=== PATIENT | male | born 1975 | race Caucasian/White ===

== ENCOUNTER 2017-06-09 18:11 | Emergency (ER) | payer MEDICAID ==
[~2017-06-09] VITALS: Ht 172.7 cm; Wt 90.7 kg
[2017-06-09 18:22] VITALS: BP_SYST 133
[2017-06-09] MEDS ORDERED: NACL 0.9% 1,000 ML IV ONE ×2 (18:45→20:00)
[2017-06-09] MEDS ORDERED: INSULIN REGULAR, HUMAN 10 UNITS/0.1 ML INJ IVP ONE (18:45)
[2017-06-09 19:22] LABS: BASOPHILS % (AUTO) 0.6 % (0.0-2.0); EOSINOPHILS # (AUTO) 0.1 K/uL (0.0-0.4); EOSINOPHILS % (AUTO) 1.4 % (0.0-4.0); HEMATOCRIT 50.4 % (36-54); HEMOGLOBIN 16.3 g/dL (14.0-18.0); LYMPHOCYTES # (AUTO) 1.3 K/uL (1.0-5.5); LYMPHOCYTES % (AUTO) 15.7 % (20.5-51.5); MEAN CORPUSCULAR HEMOGLOBIN 29 pg (27-31); MEAN CORPUSCULAR HGB CONC 32 % (32-36); MEAN CORPUSCULAR VOLUME 90 fL (79.0-98.0); MONOCYTES # (AUTO) 0.5 K/uL (0.0-1.0); MONOCYTES % (AUTO) 5.9 % (1.7-9.3); NEUTROPHILS # (AUTO) 6.2 K/uL (1.8-7.7); NEUTROPHILS % (AUTO) 76.4 % (40.0-70.0); PLATELET COUNT (AUTO) 248 K/uL (130-430); RED BLOOD CELL COUNT(AUTO) 5.62 MIL/uL (4.2-6.2); WHITE BLOOD COUNT (AUTO) 8.1 K/uL (4.8-10.8)
[2017-06-09 19:37] LABS: ANION GAP 8 (5-15); CHLORIDE 98 mmol/L (98-107); CREATININE 1.16 mg/dL (0.55-1.30); SODIUM SERUM 133 mmol/L (136-145); UREA NITROGEN, BLOOD 19 mg/dL (8-21)
[2017-06-09 19:38] LABS: ALANINE AMINOTRANSFERASE 25 U/L (12-78); ALBUMIN 3.5 g/dL (3.4-4.8); ASPARTATE AMINOTRANSFERASE 6 U/L (10-37); TOTAL BILIRUBIN 0.3 mg/dL (0.0-1.0)
[2017-06-09 19:41] LABS: GFR AFRICAN AMERICAN 90 mL/min (>90); GLUCOSE 751 mg/dL (70-99)
[2017-06-09 19:49] LABS: ACETONE, SERUM NEGATIVE (NEGATIVE)
[2017-06-09 20:18] LABS: BILIRUBIN,URINE NEGATIVE (NEGATIVE); BLOOD, URINE NEGATIVE (NEGATIVE); CLARITY/URINE CLEAR (CLEAR); COLOR,URINE YELLOW (YELLOW); GLUCOSE,URINE 3+ (NEGATIVE); KETONES,URINE NEGATIVE (NEGATIVE); LEUKOCYTE ESTERASE ,URINE NEGATIVE (NEGATIVE); NITRITE, URINE NEGATIVE (NEGATIVE); PROTEIN URINE NEGATIVE (NEGATIVE); UROBILINOGEN,URINE 0.2 (0.2-1.0)
[2017-06-09 21:02] VITALS: BP_SYST 131
[2017-06-09 21:03] LABS: BACTERIA,URINE FEW /HPF (None Seen); MUCUS,URINE None Seen /LPF (None Seen); RBC,URINE NONE SEEN /HPF (0-3); WBC,URINE 0-3 /HPF (0-3)
== END 2017-06-09 21:02 | disposition home or self-care (01) ==
LOC: SED 18:11
DX: E11.65 Type 2 diabetes mellitus with hyperglycemia (principal); I10 Essential (primary) hypertension
CPT/HCPCS: 36415; 80053; 81000; 82009; 82962; 85025; 96361; 96374; 99284; J1815; J7030

== ENCOUNTER 2017-06-15 14:23 | Emergency (ER) | payer MEDICAID ==
[~2017-06-15] VITALS: Ht 172.7 cm; Wt 90.7 kg
[2017-06-15 14:32] VITALS: BP_SYST 139
[2017-06-15] MEDS ORDERED: ONDANSETRON 4 MG ODT TAB PO ONE (14:45)
[2017-06-15] MEDS ORDERED: HYDROcodone/ACETAMIN 7.5-325 MG TAB PO ONE (14:45)
[2017-06-15 15:35] LABS: BASOPHILS % (AUTO) 0.2 % (0.0-2.0); EOSINOPHILS # (AUTO) 0.1 K/uL (0.0-0.4); EOSINOPHILS % (AUTO) 0.7 % (0.0-4.0); HEMATOCRIT 52.9 % (36-54); HEMOGLOBIN 17.5 g/dL (14.0-18.0); LYMPHOCYTES # (AUTO) 1.1 K/uL (1.0-5.5); LYMPHOCYTES % (AUTO) 13.6 % (20.5-51.5); MEAN CORPUSCULAR HEMOGLOBIN 30 pg (27-31); MEAN CORPUSCULAR HGB CONC 33 % (32-36); MEAN CORPUSCULAR VOLUME 89 fL (79.0-98.0); MONOCYTES # (AUTO) 0.7 K/uL (0.0-1.0); MONOCYTES % (AUTO) 7.8 % (1.7-9.3); NEUTROPHILS # (AUTO) 6.5 K/uL (1.8-7.7); NEUTROPHILS % (AUTO) 77.7 % (40.0-70.0); RED BLOOD CELL COUNT(AUTO) 5.94 MIL/uL (4.2-6.2); RED CELL DISTRIBUTION WIDTH 11.9 % (9.0-15.0); WHITE BLOOD COUNT (AUTO) 8.4 K/uL (4.8-10.8)
[2017-06-15] MEDS ORDERED: AMPICILLIN SODIUM/SULBACTAM NA 3 GM in NS 100 ML IV ONE (15:45)
[2017-06-15 15:55] LABS: CALCIUM 8.7 mg/dL (8.4-11.0); CREATININE 0.96 mg/dL (0.55-1.30); PLATELET COUNT (AUTO) 250 K/uL (130-430); POTASSIUM 4.4 mmol/L (3.5-5.1)
[2017-06-15] MEDS ORDERED: KETOROLAC TROMETHAMINE 15 MG VIAL IVP ONE (16:15)
[2017-06-15] MEDS ORDERED: NACL 0.9% 1,000 ML IV ONE ×2 (16:15)
[2017-06-15 16:16] LABS: ERYTHROCYTE SEDIMENTATION RATE 7 MM/HR (0-15)
[2017-06-15] MEDS ORDERED: AMPICILLIN SODIUM/SULBACTAM NA 3 GM VIAL ONE (16:22)
[2017-06-15] MEDS ORDERED: INSULIN REGULAR, HUMAN 10 UNITS/0.1 ML INJ IVP ONE (17:15)
[2017-06-15 18:10] VITALS: BP_SYST 129
== END 2017-06-15 18:10 | disposition home or self-care (01) ==
LOC: SED 14:23
DX: L03.126 Acute lymphangitis of left lower limb (principal); L03.116 Cellulitis of left lower limb; E11.65 Type 2 diabetes mellitus with hyperglycemia; I10 Essential (primary) hypertension
CPT/HCPCS: 36415; 73630; 80048; 82962; 85025; 85651; 87040; 96361; 96365; 96374; 96375; 99285; J0295; J1815; J1885; J7030; Q0162

== ENCOUNTER 2018-07-17 21:27 | Inpatient (IN) | payer MEDICAID ==
[~2018-07-17] VITALS: Ht 172.7 cm; Wt 81.4 kg
[~2018-07-17 21:27] MED LIST: BUPIVACAINE /PF 0.25% 30 ML VIAL INJ ONE; LR 1,000 ML IV.SOLN IV ONE; MIDAZOLAM HCL 5 MG/5 ML VIAL IVP ONE; ONDANSETRON HCL 4 MG/2 ML VIAL IVP ONE; PROPOFOL 200MG/ 20ML VIAL (DIPRIVAN) IV ONE; SEVOFLURANE 15 MIN GAS INH ONE; fentaNYL CITRATE/PF 100 MCG/2 ML AMP IVP ONE
[2018-07-17 21:41] VITALS: BP_SYST 169
[2018-07-17 22:26] LABS: BASOPHILS % (AUTO) 0.3 % (0.0-2.0); EOSINOPHILS # (AUTO) 0.2 K/uL (0.0-0.4); EOSINOPHILS % (AUTO) 1.2 % (0.0-4.0); HEMATOCRIT 46.4 % (36-54); HEMOGLOBIN 15.6 g/dL (14.0-18.0); LYMPHOCYTES # (AUTO) 1.6 K/uL (1.0-5.5); LYMPHOCYTES % (AUTO) 12.2 % (20.5-51.5); MEAN CORPUSCULAR HEMOGLOBIN 29 pg (27-31); MEAN CORPUSCULAR HGB CONC 34 % (32-36); MEAN CORPUSCULAR VOLUME 87 fL (79.0-98.0); MONOCYTES % (AUTO) 7.5 % (1.7-9.3); NEUTROPHILS % (AUTO) 78.8 % (40.0-70.0); PLATELET COUNT (AUTO) 245 K/uL (130-430); RED BLOOD CELL COUNT(AUTO) 5.35 MIL/uL (4.2-6.2); RED CELL DISTRIBUTION WIDTH 11.5 % (9.0-15.0); WHITE BLOOD COUNT (AUTO) 12.8 K/uL (4.8-10.8)
[2018-07-17 22:34] LABS: CALCIUM 9.3 mg/dL (8.4-11.0); CREATININE 0.95 mg/dL (0.55-1.30)
[2018-07-17] MEDS ORDERED: ACETAMINOPHEN 500 MG TABLET PO ONE (22:45)
[2018-07-17] MEDS ORDERED: cefTRIAXone 1 GM IVPB PREMIX 50 ML IV ONE (22:45)
[2018-07-17 22:49] LABS: ALBUMIN 3.3 g/dL (3.4-4.8); TOTAL BILIRUBIN 0.5 mg/dL (0.0-1.0)
[2018-07-17] MEDS ORDERED: GLUXR500 PO (23:37)
[2018-07-18] MEDS: CLINDAMYCIN 600 MG in D5W 50 ML IV SCH ×4 (00:15→17:20)
[2018-07-18] MEDS ORDERED: TEMAZEPAM 15 MG CAPSULE PO PRN (00:15)
[2018-07-18 00:22] VITALS: BP_SYST 145
[2018-07-18] MEDS ORDERED: cloNIDine HCL 0.1 MG TABLET PO PRN (00:30)
[2018-07-18] MEDS ORDERED: CLINDAMYCIN 600 mg/50mL D5W 100 ML IV ONE (00:43)
[2018-07-18] MEDS ORDERED: VANCOMYCIN HCL 1000 MG/VIAL IV ONE (00:43)
[2018-07-18] MEDS ORDERED: VANCOMYCIN HCL 1 GM/NS PREMIX 250 ML IV ONE (01:00)
[2018-07-18] MEDS: cloNIDine HCL 0.2 MG TABLET PO SCH ×3 (01:19→20:49)
[2018-07-18] MEDS: HYDROmorphone 2 MG/ML VIAL IVP PRN ×3 (01:30→17:21)
[2018-07-18] MEDS: VALSARTAN 160 MG TABLET (DIOVAN) PO SCH ×3 (02:00→20:48)
[2018-07-18] MEDS: INSULIN REGULAR, HUMAN 100 UNITS/ML, 10 ML VIAL (novoLIN R) SUBCUT PRN ×4 (06:21→20:55)
[2018-07-18 08:00] VITALS: BP_SYST 98
[2018-07-18] MEDS: ENOXAPARIN SODIUM 40 MG/0.4 ML SYRINGE SUBCUT SCH (09:30)
[2018-07-18 12:00] VITALS: BP_SYST 95
[2018-07-18] MEDS: VANCOMYCIN HCL 1,250 MG in NS 250 ML IV SCH (15:26)
[2018-07-18 16:00] VITALS: BP_SYST 124
[2018-07-18] MEDS: metFORMIN HCL 500 MG TABLET PO SCH (18:11)
[2018-07-18 19:10] VITALS: BP_SYST 117
[2018-07-18] MEDS: ACETAMINOPHEN 325 MG TABLET PO PRN (21:04)
[2018-07-19 00:36] VITALS: BP_SYST 117
[2018-07-19] MEDS: CLINDAMYCIN 600 MG in D5W 50 ML IV SCH ×5 (00:49→23:48)
[2018-07-19] MEDS: VANCOMYCIN HCL 1,250 MG in NS 250 ML IV SCH ×2 (02:37→13:54)
[2018-07-19] MEDS: INSULIN REGULAR, HUMAN 100 UNITS/ML, 10 ML VIAL (novoLIN R) SUBCUT PRN ×4 (06:15→20:44)
[2018-07-19 06:23] LABS: BASOPHILS # (AUTO) 0.1 K/uL (0.0-0.2); BASOPHILS % (AUTO) 1.3 % (0.0-2.0); EOSINOPHILS # (AUTO) 0.2 K/uL (0.0-0.4); EOSINOPHILS % (AUTO) 3.2 % (0.0-4.0); HEMATOCRIT 40.3 % (36-54); LYMPHOCYTES # (AUTO) 1.9 K/uL (1.0-5.5); MEAN CORPUSCULAR HEMOGLOBIN 29 pg (27-31); MEAN CORPUSCULAR HGB CONC 32 % (32-36); MONOCYTES # (AUTO) 0.6 K/uL (0.0-1.0); MONOCYTES % (AUTO) 8.2 % (1.7-9.3); NEUTROPHILS # (AUTO) 4.1 K/uL (1.8-7.7); NEUTROPHILS % (AUTO) 59.3 % (40.0-70.0); PLATELET COUNT (AUTO) 280 K/uL (130-430); RED BLOOD CELL COUNT(AUTO) 4.52 MIL/uL (4.2-6.2); RED CELL DISTRIBUTION WIDTH 11.5 % (9.0-15.0); WHITE BLOOD COUNT (AUTO) 6.9 K/uL (4.8-10.8)
[2018-07-19 07:31] LABS: CALCIUM 8.4 mg/dL (8.4-11.0); CREATININE 0.92 mg/dL (0.55-1.30); MEAN CORPUSCULAR VOLUME 89 fL (79.0-98.0); POTASSIUM 3.8 mmol/L (3.5-5.1)
[2018-07-19 08:00] VITALS: BP_SYST 139
[2018-07-19] MEDS: metFORMIN HCL 500 MG TABLET PO SCH ×2 (08:00→17:04)
[2018-07-19] MEDS: cloNIDine HCL 0.2 MG TABLET PO SCH ×2 (09:00→20:41)
[2018-07-19] MEDS: VALSARTAN 160 MG TABLET (DIOVAN) PO SCH ×2 (09:00→20:42)
[2018-07-19] MEDS ORDERED: POLYMYXIN 500,000/BACIT.10,000 UNITS in NS IRR 1 L IR ONE (10:12)
[2018-07-19] MEDS ORDERED: LR 1,000 ML IV SCH (10:38)
[2018-07-19] MEDS ORDERED: MORPHINE 4 MG/ML INJ. SYRINGE IVP PRN ×3 (10:45)
[2018-07-19 12:00] VITALS: BP_SYST 119
[2018-07-19] MEDS: ENOXAPARIN SODIUM 40 MG/0.4 ML SYRINGE SUBCUT SCH (12:16)
[2018-07-19] MEDS: HYDROmorphone 2 MG/ML VIAL IVP PRN ×2 (14:31→18:33)
[2018-07-19 15:57] VITALS: BP_SYST 139
[2018-07-19 16:00] VITALS: BP_SYST 131
[2018-07-19 20:00] VITALS: BP_SYST 112
[2018-07-20 00:10] VITALS: BP_SYST 112
[2018-07-20] MEDS: VANCOMYCIN HCL 1,250 MG in NS 250 ML IV SCH ×3 (01:26→14:50)
[2018-07-20] MEDS: CLINDAMYCIN 600 MG in D5W 50 ML IV SCH ×3 (06:19→17:16)
[2018-07-20] MEDS: INSULIN REGULAR, HUMAN 100 UNITS/ML, 10 ML VIAL (novoLIN R) SUBCUT PRN ×4 (06:21→22:25)
[2018-07-20] MEDS: HYDROmorphone 2 MG/ML VIAL IVP PRN ×4 (06:25→20:43)
[2018-07-20] MEDS: metFORMIN HCL 500 MG TABLET PO SCH ×2 (08:06→17:24)
[2018-07-20 08:07] LABS: CALCIUM 8.4 mg/dL (8.4-11.0); CREATININE 0.9 mg/dL (0.55-1.30)
[2018-07-20] MEDS: ENOXAPARIN SODIUM 40 MG/0.4 ML SYRINGE SUBCUT SCH (08:09)
[2018-07-20] MEDS: cloNIDine HCL 0.2 MG TABLET PO SCH ×2 (08:10→22:21)
[2018-07-20] MEDS: VALSARTAN 160 MG TABLET (DIOVAN) PO SCH ×2 (08:10→22:21)
[2018-07-20] MEDS: ACETAMINOPHEN 325 MG TABLET PO PRN (08:15)
[2018-07-20 08:17] VITALS: BP_SYST 92
[2018-07-20 12:00] VITALS: BP_SYST 110
[2018-07-20 17:18] VITALS: BP_SYST 133
[2018-07-20 20:18] VITALS: BP_SYST 134
[2018-07-21 00:25] VITALS: BP_SYST 137
[2018-07-21] MEDS: VANCOMYCIN HCL 1,250 MG in NS 250 ML IV SCH ×2 (01:09→14:27)
[2018-07-21] MEDS: HYDROmorphone 2 MG/ML VIAL IVP PRN ×4 (01:10→17:43)
[2018-07-21] MEDS: CLINDAMYCIN 600 MG in D5W 50 ML IV SCH ×3 (01:10→13:37)
[2018-07-21] MEDS: INSULIN REGULAR, HUMAN 100 UNITS/ML, 10 ML VIAL (novoLIN R) SUBCUT PRN (06:03)
[2018-07-21] MEDS: ENOXAPARIN SODIUM 40 MG/0.4 ML SYRINGE SUBCUT SCH (08:27)
[2018-07-21] MEDS: metFORMIN HCL 500 MG TABLET PO SCH ×2 (08:28→17:42)
[2018-07-21] MEDS: VALSARTAN 160 MG TABLET (DIOVAN) PO SCH (08:28)
[2018-07-21] MEDS: cloNIDine HCL 0.2 MG TABLET PO SCH (08:28)
[2018-07-21 09:17] VITALS: BP_SYST 120
[2018-07-21 12:00] VITALS: BP_SYST 149
[2018-07-21 16:05] VITALS: BP_SYST 138
[2018-07-21] MEDS ORDERED: AMPICILLIN SODIUM 2 GM in NS 100 ML IV SCH (18:00)
[2018-07-21] MEDS ORDERED: AMOX-426 PO (18:33)
[2018-07-21] MEDS ORDERED: VALS160T2 PO (18:34)
[2018-07-21] MEDS ORDERED: METF1000 PO (18:34)
[2018-07-21] MEDS ORDERED: HYDR-4272 PO (18:35)
[2018-07-21 18:40] VITALS: BP_SYST 138
== END 2018-07-21 19:50 | disposition home or self-care (01) | DRG 344 ==
LOC: SED 21:27 → SMU 23:53
PROVIDERS: ADMIT Family Medicine; ATTEND Family Medicine
PROC: 0JBQ0ZZ Excision of Right Foot Subcutaneous Tissue and Fascia, Open Approach (ICD-10-PCS; 2018-07-19)
PROC: 0H9MXZZ Drainage of Right Foot Skin, External Approach (ICD-10-PCS; 2018-07-19)
PROC: 3E0T3BZ Introduction of Anesthetic Agent into Peripheral Nerves and Plexi, Percutaneous Approach (ICD-10-PCS; principal; 2018-07-19 10:30)
DX: M72.6 Necrotizing fasciitis (principal); E11.65 Type 2 diabetes mellitus with hyperglycemia; L03.115 Cellulitis of right lower limb; E44.1 Mild protein-calorie malnutrition; L02.611 Cutaneous abscess of right foot; F12.90 Cannabis use, unspecified, uncomplicated; F14.90 Cocaine use, unspecified, uncomplicated; F15.90 Other stimulant use, unspecified, uncomplicated; F17.210 Nicotine dependence, cigarettes, uncomplicated; B95.1 Streptococcus, group B, as the cause of diseases classified elsewhere; I10 Essential (primary) hypertension; Z68.27 Body mass index [BMI] 27.0-27.9, adult; Z79.84 Long term (current) use of oral hypoglycemic drugs
CPT/HCPCS: 36415; 80048; 80053; 80202-TC; 82962; 83036; 83605; 85025; 86140; 87040-TC; 87070; 87070-TC; 87075-TC; 87081; 88304; 94010; 99285; J0290; J0696; J1170; J1650; J1815; J2250; J2405; J2704; J3010; J3370; J3490; J7040; J7050; J7060; J7120

== ENCOUNTER 2018-08-25 22:12 | Emergency (ER) | payer MEDICAID ==
[~2018-08-25] VITALS: Ht 172.7 cm; Wt 86.2 kg
[~2018-08-25 22:12] MED LIST changes: +AMOX-426 PO; -BUPIVACAINE /PF 0.25% 30 ML VIAL INJ ONE; +HYDR-4272 PO; -LR 1,000 ML IV.SOLN IV ONE; +METF1000 PO; -MIDAZOLAM HCL 5 MG/5 ML VIAL IVP ONE; -ONDANSETRON HCL 4 MG/2 ML VIAL IVP ONE; -PROPOFOL 200MG/ 20ML VIAL (DIPRIVAN) IV ONE; -SEVOFLURANE 15 MIN GAS INH ONE; +VALS160T2 PO; -fentaNYL CITRATE/PF 100 MCG/2 ML AMP IVP ONE
[2018-08-25 22:26] VITALS: BP_SYST 111
[2018-08-25 22:50] LABS: LYMPHOCYTES # (AUTO) 1.3 K/uL (1.0-5.5); RED CELL DISTRIBUTION WIDTH 11.9 % (9.0-15.0)
[2018-08-25] MEDS ORDERED: INSULIN REGULAR, HUMAN 10 UNITS/0.1 ML INJ IVP ONE (23:00)
[2018-08-25] MEDS ORDERED: NACL 0.9% 1,000 ML IV ONE (23:00)
[2018-08-25 23:03] LABS: BASOPHILS # (AUTO) 0.1 K/uL (0.0-0.2); BASOPHILS % (AUTO) 0.5 % (0.0-2.0); EOSINOPHILS % (AUTO) 0.3 % (0.0-4.0); HEMATOCRIT 44.8 % (36-54); HEMOGLOBIN 15.1 g/dL (14.0-18.0); LYMPHOCYTES % (AUTO) 10.4 % (20.5-51.5); MEAN CORPUSCULAR HEMOGLOBIN 30 pg (27-31); MEAN CORPUSCULAR HGB CONC 34 % (32-36); MEAN CORPUSCULAR VOLUME 88 fL (79.0-98.0); MONOCYTES # (AUTO) 0.8 K/uL (0.0-1.0); MONOCYTES % (AUTO) 6.2 % (1.7-9.3); NEUTROPHILS # (AUTO) 10.7 K/uL (1.8-7.7); NEUTROPHILS % (AUTO) 82.6 % (40.0-70.0); PLATELET COUNT (AUTO) 207 K/uL (130-430); WHITE BLOOD COUNT (AUTO) 12.9 K/uL (4.8-10.8)
[2018-08-25 23:09] LABS: CALCIUM 9.1 mg/dL (8.4-11.0); CREATININE 1.08 mg/dL (0.55-1.30); POTASSIUM 4.7 mmol/L (3.5-5.1)
[2018-08-25 23:14] LABS: ALBUMIN 2.5 g/dL (3.4-4.8); TOTAL BILIRUBIN 0.4 mg/dL (0.0-1.0)
[2018-08-25 23:26] LABS: INR 0.9 (0.80-1.20); PROTHROMBIN TIME 9.1 SECS (9.5-12.5)
[2018-08-26] MEDS ORDERED: MORPHINE 4 MG/ML INJ. SYRINGE IVP ONE ×2 (00:30→02:15)
[2018-08-26] MEDS ORDERED: AMPICILLIN SODIUM/SULBACTAM NA 3 GM in NS 100 ML IV ONE (00:30)
[2018-08-26] MEDS ORDERED: AMPICILLIN SODIUM/SULBACTAM NA 3 GM VIAL ONE (00:55)
[2018-08-26] MEDS ORDERED: NACL 0.9% 1,000 ML IV ONE (03:00)
[2018-08-26] MEDS ORDERED: INSULIN REGULAR, HUMAN 10 UNITS/0.1 ML INJ IVP ONE (03:00)
[2018-08-26] MEDS ORDERED: COLCHICINE 0.6 MG TABLET PO ONE (04:30)
[2018-08-26] MEDS ORDERED: COLCHICINE 0.6 MG TABLET ONE (04:41)
[2018-08-26 04:47] VITALS: BP_SYST 124
== END 2018-08-26 04:47 | disposition home or self-care (01) ==
LOC: SED 22:12
DX: L03.115 Cellulitis of right lower limb (principal); E11.65 Type 2 diabetes mellitus with hyperglycemia; B35.3 Tinea pedis; Z95.1 Presence of aortocoronary bypass graft; Z79.899 Other long term (current) drug therapy
CPT/HCPCS: 36415; 80053; 82962; 83880; 84484; 85025; 85379; 85610; 85730; 96361; 96365; 96375; 96376; 99283; J0295; J1815 ×2; J2270; J7030 ×2

== ENCOUNTER 2019-08-17 16:09 | Emergency (ER) | payer MEDICAID ==
[~2019-08-17] VITALS: Ht 172.7 cm; Wt 86.2 kg
[~2019-08-17 16:09] MED LIST changes: +ALL300 PO; -AMOX-426 PO; +COLC0.6T67 PO; +DOXY100T2 PO; +GLIP10TA11 PO; +HCT25 PO; +INSU100V3 SQ; +LIP20 PO; +LOSA25TA3 PO; +METO-540 PO; +NAPR-1174 PO; +PRED20TA PO; -VALS160T2 PO
[2019-08-17 16:10] VITALS: BP_SYST 136
--- NOTE | 2019-08-17 16:10 | NUR ---
Patient triaged and placed in waiting room. VSS and patient appears in no acute distress at this time. Accompanied by FRIEND, awaiting available bed, and MD notified of need for MSE.
--- NOTE | 2019-08-17 18:35 | NUR ---
Nelly Smith [employer] GEOLOGIST at bedside examining patient
--- NOTE | 2019-08-17 18:37 | NUR ---
BROUGHT BACK TO BED #8 AND REPORT GIVEN TO KRIS
--- NOTE | 2019-08-17 18:40 | NUR ---
Pt brought by self, A&Ox4 , pt presents to ER with cracked /oozing skin on L foot between toes,afebrile, skin pink and warm, cap refill <3, pt ambulatory, VSS,
--- NOTE | 2019-08-17 18:51 | NUR ---
Patient given written and verbal discharge instructions and verbalizes understanding. ER MD discussed with patient the results and treatment provided. Patient in stable condition. ID arm band removed. No Rx given. Patient educated on pain management and to follow up with PMD. Pain Scale 2/10 tolerable for patient . Opportunity for questions provided and answered. Medication side effect fact sheet provided.
[2019-08-17 19:16] VITALS: BP_SYST 132
--- NOTE | 2019-08-17 19:16 | NUR ---
Patient given written and verbal discharge instructions and verbalizes understanding. ER MD discussed with patient the results and treatment provided. Patient in stable condition. ID arm band removed. Rx of Bactrim, Keflex, Motrin, and Mupirocin ointment given. Patient educated on pain management and to follow up with PMD. Pain Scale 0/10. Opportunity for questions provided and answered. Medication side effect fact sheet provided.
== END 2019-08-17 18:51 | disposition home or self-care (01) ==
LOC: SED 16:09
DX: L03.116 Cellulitis of left lower limb (principal); E11.9 Type 2 diabetes mellitus without complications; I10 Essential (primary) hypertension; F17.290 Nicotine dependence, other tobacco product, uncomplicated; Z79.84 Long term (current) use of oral hypoglycemic drugs; Z79.899 Other long term (current) drug therapy
CPT/HCPCS: 82962; 99282; 99283